=== PATIENT | male | born 1940 | race Caucasian/White ===

== ENCOUNTER 2021-07-21 01:32 | Inpatient (IN) ==
[2021-07-21] MEDS ORDERED: ONDANSETRON 4 MG/2 ML VIAL IV STA (02:10)
[2021-07-21] MEDS ORDERED: MORPHINE 2 MG/1 ML SYRINGE IV STA (02:10)
[2021-07-21 03:47] LABS: Basophils # 0.1 10*3/uL (0.0-0.2); Basophils % 0.4 % (0.0-0.8); Eosinophils % 0.1 % (0.00-10.9); Hematocrit 34.2 VOL% (42.0-52.0); Immature Granulocytes % 20.4 %; Immature Granulocytes Absolute 6.03 #; Lymphocytes # 0.1 10*3/uL (1.4-4.0); Lymphocytes % 0.5 % (21.2-54.2); Mean Corpuscular HGB Conc 32.2 GM/DL (32-36); Mean Corpuscular Volume 93.7 FL (87-102); Monocytes % 0.2 % (1.7-12.7); Neutrophils % 78.4 % (38.7-73.9); Platelet Count 173 T/CUMM (130-400); Red Blood Count 3.65 MC/CUMM (3.8-5.5); Red Cell Distribution Width 16.3 % (9.3-17.3); White Blood Count 29.6 T/CUMM (4-12)
[2021-07-21 04:35] LABS: Albumin 2.5 G/DL (3.4-5.0); Bilirubin,Total 0.9 MG/DL (0.20-1.00); Calcium 8.5 MG/DL (8.5-10.1); Osmolality,Calculated 279.1 MOS/KG (273-304); Potassium 4.1 MMOL/L (3.5-5.1); Total Protein 5.6 G/DL (6.4-8.2)
[2021-07-21 05:14] LABS: Band Neutrophils 1 % (0-10); Hypochromia Slight; Lymphocytes 1 % (20-55); Segmented Neutrophils 97 % (50-85); Total Cells Counted 100
[2021-07-21 05:15] LABS: Anisocytosis 1+; Microcytosis 1+; Ovalocytes Slight; Platelet Estimate Adequate
[2021-07-21] MEDS ORDERED: PIPERACILLIN/TAZOBACTAM 3,375 MG in SODIUM CHLORIDE 0.9% 100 ML IV STA (05:29)
[2021-07-21] MEDS ORDERED: DEXAMETHASONE 4 MG/1 ML VIAL IV STA (05:29)
[2021-07-21] MEDS ORDERED: LACTATED RINGERS 2,000 ML IV ONE (06:15)
[2021-07-21] MEDS: ENOXAPARIN 40 MG/0.4 ML SYRINGE SUBCUT SCH ×2 (06:40→18:31)
[2021-07-21] MEDS ORDERED: ONDANSETRON 4 MG/2 ML VIAL IV PRN (07:34)
[2021-07-21 08:04] LABS: Ferritin 856.4 ng/mL (26-388)
[2021-07-21] MEDS ORDERED: TACROLIMUS 0.5 MG CAPSULE PO SCH (09:00)
[2021-07-21] MEDS: DEXAMETHASONE 4 MG/1 ML VIAL IV SCH (09:04)
[2021-07-21] MEDS: ASPIRIN EC 81 MG TABLET PO SCH (09:04)
[2021-07-21] MEDS: TAMSULOSIN 0.4 MG CAPSULE PO SCH (09:05)
[2021-07-21] MEDS: TOPIRAMATE 25 MG TABLET PO SCH ×2 (09:06→21:21)
[2021-07-21] MEDS: PANTOPRAZOLE 40 MG TABLET PO SCH (09:06)
[2021-07-21] MEDS: DILTIAZEM HCL 90 MG PO SCH (09:07)
[2021-07-21] MEDS: TACROLIMUS 0.5 MG CAPSULE PO SCH ×2 (09:35→21:20)
[2021-07-21 11:02] LABS: INR 1.1; PT Patient Result 11.9 SECS (10.5-12.0)
[2021-07-21] MEDS: ALBUTEROL INHALER 18 GM INH SCH ×2 (15:13→19:39)
[2021-07-21] MEDS: PIPERACILLIN/TAZOBACTAM 3,375 MG in SODIUM CHLORIDE 0.9% 100 ML IV SCH ×2 (15:13→22:59)
[2021-07-21] MEDS ORDERED: REMDESIVIR 200 MG in SODIUM CHLORIDE 0.9% 210 ML IV ONE (16:00)
[2021-07-21 16:09] LABS: Bilirubin,Urine Negative (Negative); Blood, Urine Small mg/dL (Negative); Glucose,Urine (UA) Negative (Negative); Hyaline Casts,Urine 1 /LPF (0-3); Ketones,Urine Negative (Negative); Mucus,Urine Occasional /LPF (Occasional); Nitrite,Urine Negative (Negative); Protein,Urine Negative; RBC,Urine 3 /HPF (0-4); Urine Appearance CLEAR (Clear); Urine Color Yellow (Yellow); Urine Specific Gravity 1.038 (1.001-1.035); Urine Urobilinogen < 2.0 EU/DL (<2.0)
[2021-07-21] MEDS: SIMVASTATIN 20 MG TABLET PO SCH (21:22)
[2021-07-21] MEDS: BUDESONIDE/FORMOTEROL 160-4.5 INHALER 6 GM INH SCH (21:25)
[2021-07-21] MEDS ORDERED: ACETAMINOPHEN 500 MG TABLET PO STA (23:24)
[2021-07-22] MEDS: ALBUTEROL INHALER 18 GM INH SCH ×3 (01:20→13:25)
[2021-07-22 03:37] LABS: Basophils % 0.4 % (0.0-0.8); Hematocrit 29.8 VOL% (42.0-52.0); Hemoglobin 9.5 GM/DL (14.0-18.0); Immature Granulocytes % 17.6 %; Immature Granulocytes Absolute 1.83 #; Lymphocytes # 0.1 10*3/uL (1.4-4.0); Lymphocytes % 1.1 % (21.2-54.2); Mean Corpuscular HGB Conc 31.9 GM/DL (32-36); Mean Corpuscular Volume 94.3 FL (87-102); Mean Platelet Volume 11.1 FL (9.6-12.0); Monocytes % 0.2 % (1.7-12.7); Neutrophils % 80.7 % (38.7-73.9); Platelet Count 142 T/CUMM (130-400); Red Blood Count 3.16 MC/CUMM (3.8-5.5); Red Cell Distribution Width 16.1 % (9.3-17.3)
[2021-07-22 03:46] LABS: White Blood Count 10.4 T/CUMM (4-12)
[2021-07-22 03:55] LABS: Alanine Aminotransferase 14 U/L (16-61); Albumin 2.2 G/DL (3.4-5.0); Alkaline Phosphatase 86 U/L (45-117); Aspartate Amino Transferase 14 U/L (0-37); Bilirubin,Total < 0.39 MG/DL (0.20-1.00); Blood Urea Nitrogen 35 MG/DL (7-18); Calcium 7.6 MG/DL (8.5-10.1); Carbon Dioxide 25 MMOL/L (21-32); Estimated Glom Filtration Rate 54 ML/MIN; Glucose 139 MG/DL (74-106); Osmolality,Calculated 288.4 MOS/KG (273-304); Potassium 4.3 MMOL/L (3.5-5.1); Sodium 140 MMOL/L (136-145); Total Protein 5.3 G/DL (6.4-8.2)
[2021-07-22 04:00] LABS: Hypochromia 1+; Lymphocytes 2 % (20-55); Microcytosis 1+; Platelet Estimate Adequate; Segmented Neutrophils 98 % (50-85); Total Cells Counted 100
[2021-07-22] MEDS: ENOXAPARIN 40 MG/0.4 ML SYRINGE SUBCUT SCH ×2 (06:29→18:31)
[2021-07-22] MEDS: PIPERACILLIN/TAZOBACTAM 3,375 MG in SODIUM CHLORIDE 0.9% 100 ML IV SCH ×3 (06:30→22:12)
[2021-07-22] MEDS: DEXAMETHASONE 4 MG/1 ML VIAL IV SCH (09:00)
[2021-07-22] MEDS: TAMSULOSIN 0.4 MG CAPSULE PO SCH (09:08)
[2021-07-22] MEDS: TACROLIMUS 0.5 MG CAPSULE PO SCH ×2 (09:08→22:11)
[2021-07-22] MEDS: TOPIRAMATE 25 MG TABLET PO SCH ×2 (09:08→22:12)
[2021-07-22] MEDS: PANTOPRAZOLE 40 MG TABLET PO SCH (09:08)
[2021-07-22] MEDS: BUDESONIDE/FORMOTEROL 160-4.5 INHALER 6 GM INH SCH (09:10)
[2021-07-22] MEDS: DILTIAZEM HCL 90 MG PO SCH (09:57)
[2021-07-22] MEDS: REMDESIVIR 100 MG in SODIUM CHLORIDE 0.9% 100 ML IV SCH (09:59)
[2021-07-22] MEDS: SIMVASTATIN 20 MG TABLET PO SCH (22:12)
[2021-07-23 05:24] LABS: Basophils % 0.4 % (0.0-0.8); Eosinophils % 1.3 % (0.00-10.9); Hematocrit 31.7 VOL% (42.0-52.0); Hemoglobin 10.2 GM/DL (14.0-18.0); Immature Granulocytes % 25.3 %; Lymphocytes # 0.2 10*3/uL (1.4-4.0); Lymphocytes % 6.8 % (21.2-54.2); Mean Corpuscular HGB Conc 32.2 GM/DL (32-36); Mean Platelet Volume 10.9 FL (9.6-12.0); Monocytes % 0.8 % (1.7-12.7); Neutrophils % 65.4 % (38.7-73.9); Platelet Count 120 T/CUMM (130-400); Red Blood Count 3.41 MC/CUMM (3.8-5.5); White Blood Count 2.4 T/CUMM (4-12)
[2021-07-23] MEDS: ENOXAPARIN 40 MG/0.4 ML SYRINGE SUBCUT SCH ×2 (05:39→18:27)
[2021-07-23 05:49] LABS: Eosinophils 1 % (0-10); Lymphocytes 6 % (20-55); Segmented Neutrophils 92 % (50-85); Total Cells Counted 100
[2021-07-23 05:50] LABS: Hypochromia 1+; Microcytosis 1+
[2021-07-23 05:57] LABS: Albumin 2.2 G/DL (3.4-5.0); Bilirubin,Total 0.6 MG/DL (0.20-1.00); Calcium 7.8 MG/DL (8.5-10.1); Osmolality,Calculated 283.5 MOS/KG (273-304); Total Protein 5.2 G/DL (6.4-8.2)
[2021-07-23] MEDS: PIPERACILLIN/TAZOBACTAM 3,375 MG in SODIUM CHLORIDE 0.9% 100 ML IV SCH ×3 (06:19→22:57)
[2021-07-23] MEDS: ALBUTEROL INHALER 18 GM INH SCH ×3 (07:58→08:42)
[2021-07-23] MEDS: BUDESONIDE/FORMOTEROL 160-4.5 INHALER 6 GM INH SCH ×2 (07:58→08:42)
[2021-07-23] MEDS: TACROLIMUS 0.5 MG CAPSULE PO SCH ×2 (08:42→21:01)
[2021-07-23] MEDS: PANTOPRAZOLE 40 MG TABLET PO SCH (08:43)
[2021-07-23] MEDS: DILTIAZEM HCL 90 MG PO SCH (08:43)
[2021-07-23] MEDS: TAMSULOSIN 0.4 MG CAPSULE PO SCH (08:43)
[2021-07-23] MEDS: ASPIRIN EC 81 MG TABLET PO SCH (08:43)
[2021-07-23] MEDS: TOPIRAMATE 25 MG TABLET PO SCH ×2 (08:43→21:02)
[2021-07-23] MEDS: DEXAMETHASONE 4 MG/1 ML VIAL IV SCH (08:47)
[2021-07-23] MEDS: REMDESIVIR 100 MG in SODIUM CHLORIDE 0.9% 100 ML IV SCH (10:31)
[2021-07-23] MEDS: SIMVASTATIN 20 MG TABLET PO SCH (21:01)
[2021-07-24] MEDS: PIPERACILLIN/TAZOBACTAM 3,375 MG in SODIUM CHLORIDE 0.9% 100 ML IV SCH ×3 (06:31→21:58)
[2021-07-24] MEDS: ENOXAPARIN 40 MG/0.4 ML SYRINGE SUBCUT SCH ×2 (06:32→17:40)
[2021-07-24 06:47] LABS: Eosinophils # 0.1 10*3/uL (0.0-0.87); Eosinophils % 15.9 % (0.00-10.9); Hematocrit 31.4 VOL% (42.0-52.0); Hemoglobin 9.9 GM/DL (14.0-18.0); Lymphocytes # 0.2 10*3/uL (1.4-4.0); Mean Corpuscular HGB Conc 31.5 GM/DL (32-36); Mean Corpuscular Volume 94.3 FL (87-102); Mean Platelet Volume 10.7 FL (9.6-12.0); Monocytes % 2.9 % (1.7-12.7); Neutrophils % 52.2 % (38.7-73.9); Platelet Count 92 T/CUMM (130-400); Red Blood Count 3.33 MC/CUMM (3.8-5.5)
[2021-07-24 06:55] LABS: White Blood Count 0.7 T/CUMM (4-12)
[2021-07-24 07:08] LABS: Albumin 2.3 G/DL (3.4-5.0); Calcium 7.7 MG/DL (8.5-10.1); Osmolality,Calculated 287.1 MOS/KG (273-304); Potassium 3.8 MMOL/L (3.5-5.1); Total Protein 5.2 G/DL (6.4-8.2)
[2021-07-24 07:09] LABS: Ferritin 572.8 ng/mL (26-388)
[2021-07-24 07:13] LABS: Band Neutrophils 1 % (0-10); Eosinophils 17 % (0-10); Hypochromia 1+; Lymphocytes 36 % (20-55); Microcytosis 1+; Platelet Estimate Decreased; Segmented Neutrophils 45 % (50-85); Total Cells Counted 100
[2021-07-24] MEDS: TAMSULOSIN 0.4 MG CAPSULE PO SCH (09:53)
[2021-07-24] MEDS: TACROLIMUS 0.5 MG CAPSULE PO SCH ×2 (09:53→21:58)
[2021-07-24] MEDS: DEXAMETHASONE 4 MG/1 ML VIAL IV SCH (09:53)
[2021-07-24] MEDS: PANTOPRAZOLE 40 MG TABLET PO SCH (09:53)
[2021-07-24] MEDS: TOPIRAMATE 25 MG TABLET PO SCH ×2 (09:53→21:58)
[2021-07-24] MEDS: REMDESIVIR 100 MG in SODIUM CHLORIDE 0.9% 100 ML IV SCH (09:54)
[2021-07-24] MEDS ORDERED: FILGRASTIM-SNDZ 480 MCG/0.8 ML SYRINGE SUBCUT ONE (11:00)
[2021-07-24] MEDS: ALBUTEROL INHALER 18 GM INH SCH ×2 (15:54→21:59)
[2021-07-24] MEDS: BUDESONIDE/FORMOTEROL 160-4.5 INHALER 6 GM INH SCH ×2 (15:54→21:59)
[2021-07-24] MEDS: LOPERAMIDE 2 MG CAPSULE PO PRN (17:40)
[2021-07-24] MEDS: DILTIAZEM HCL 90 MG PO SCH (18:48)
[2021-07-24] MEDS: SIMVASTATIN 20 MG TABLET PO SCH (21:58)
[2021-07-25] MEDS: ALBUTEROL INHALER 18 GM INH SCH ×2 (01:32→09:29)
[2021-07-25] MEDS: ENOXAPARIN 40 MG/0.4 ML SYRINGE SUBCUT SCH (05:33)
[2021-07-25] MEDS: PIPERACILLIN/TAZOBACTAM 3,375 MG in SODIUM CHLORIDE 0.9% 100 ML IV SCH (05:34)
[2021-07-25] MEDS: LOPERAMIDE 2 MG CAPSULE PO PRN ×2 (05:40→09:29)
[2021-07-25 06:06] LABS: Calcium 7.6 MG/DL (8.5-10.1); Potassium 3.8 MMOL/L (3.5-5.1)
[2021-07-25 06:07] LABS: Eosinophils # 0.1 10*3/uL (0.0-0.87); Eosinophils % 17.5 % (0.00-10.9); Hematocrit 31.8 VOL% (42.0-52.0); Immature Granulocytes % 2.5 %; Immature Granulocytes Absolute 0.01 #; Lymphocytes # 0.2 10*3/uL (1.4-4.0); Lymphocytes % 47.5 % (21.2-54.2); Mean Corpuscular HGB Conc 31.4 GM/DL (32-36); Mean Corpuscular Volume 94.4 FL (87-102); Mean Platelet Volume 11.9 FL (9.6-12.0); Neutrophils % 27.5 % (38.7-73.9); Platelet Count 71 T/CUMM (130-400); Red Blood Count 3.37 MC/CUMM (3.8-5.5); Red Cell Distribution Width 15.9 % (9.3-17.3)
[2021-07-25 06:09] LABS: White Blood Count 0.4 T/CUMM (4-12)
[2021-07-25 06:13] LABS: Ferritin 412.6 ng/mL (26-388)
[2021-07-25 06:29] LABS: Eosinophils 10 % (0-10); Hypochromia Slight; Lymphocytes 38 % (20-55); Microcytosis 1+; Ovalocytes Slight; Platelet Estimate Decreased; Segmented Neutrophils 52 % (50-85); Total Cells Counted 100
[2021-07-25 07:53] VITALS: BP 144/76
[2021-07-25] MEDS ORDERED: FILGRASTIM-SNDZ 480 MCG/0.8 ML SYRINGE SUBCUT ONE ×2 (09:00→09:03)
[2021-07-25] MEDS: TACROLIMUS 0.5 MG CAPSULE PO SCH (09:29)
[2021-07-25] MEDS: DEXAMETHASONE 4 MG/1 ML VIAL IV SCH (09:29)
[2021-07-25] MEDS: ASPIRIN EC 81 MG TABLET PO SCH (09:29)
[2021-07-25] MEDS: PANTOPRAZOLE 40 MG TABLET PO SCH (09:29)
[2021-07-25] MEDS: TAMSULOSIN 0.4 MG CAPSULE PO SCH (09:29)
[2021-07-25] MEDS: REMDESIVIR 100 MG in SODIUM CHLORIDE 0.9% 100 ML IV SCH (09:29)
[2021-07-25] MEDS: BUDESONIDE/FORMOTEROL 160-4.5 INHALER 6 GM INH SCH (09:29)
[2021-07-25] MEDS: TOPIRAMATE 25 MG TABLET PO SCH (09:29)
[2021-07-25] MEDS: DILTIAZEM HCL 90 MG PO SCH (13:09)
== END 2021-07-25 12:38 | disposition home or self-care (01) | DRG 177 ==
LOC: SUATTDRO → EDUNIT# → EDBD → N.ED 01:32 → SUATTDRO 06:20 → N.EDINP 06:20 → N.5E 07-22 17:38
PROVIDERS: ADMIT Internal Medicine; ATTEND Hospitalist